=== PATIENT | female | born 1960 | race Asian ===

== ENCOUNTER 2025-02-03 10:30 | Emergency (ER) | payer OTHER ==
[2025-02-03 11:03] LABS: #Basophils 0.05 10x3/uL (0.0-0.2); #Eosinophils 0.12 10x3/uL (0.0-0.5); #Monocytes 0.35 10x3/uL (0.0-1.1); #Neutrophils 4.06 10x3/uL (1.5-8.4); %Basophils 0.8 % (0.0-2.0); %Eosinophils 1.9 % (0.0-6.0); %Lymphocytes 28.3 % (18.0-47.0); %Monocytes 5.4 % (0.0-10.0); %Neutrophils 62.8 % (40.0-75.0); Hematocrit 38.6 % (34.9-44.5); Hemoglobin 12.4 g/dL (12.0-15.5); Mean Corpuscular Hemoglobin 29.7 pg (27.0-33.0); Mean Corpuscular Volume 92.3 fL (81.6-98.3); Platelet Count 209 10x3/uL (150-450); Red Blood Cell (RBC) Count 4.18 10x6/uL (3.90-5.03); White Blood Cell (WBC) Count 6.46 10x3/uL (3.5-10.5)
[2025-02-03 11:28] LABS: ALT (SGPT) 16 U/L (Less than 34); AST (SGOT) 28 U/L (11-34); Albumin 4.1 g/dL (3.1-4.5); Alkaline Phosphatase 63 U/L (40-110); Anion Gap 13 mmol/L (10-20); BUN (Urea Nitrogen) 16 mg/dL (9.8-20.1); Bilirubin, Total 0.6 mg/dL (0.3-1.2); Calc. Creatinine Clearance 0 mL/min (70-130); Calcium 8.7 mg/dL (7.8-10.44); Carbon Dioxide 23 mmol/L (23-31); Chloride 106 mmol/L (98-107); Globulin 2.9 g/dL (2.4-3.5); Glucose 179 mg/dL (80-115); Lipase 33 U/L (8-78); Magnesium 2.1 mg/dL (1.6-2.6); Potassium 3.6 mmol/L (3.5-5.1); Sodium 138 mmol/L (136-145)
[2025-02-03 11:34] LABS: Troponin I Less than 0.010 ng/mL (< 0.028)
[2025-02-03] MEDS ORDERED: Iopamidol 370 76% 100 ML VIAL ONE (11:49)
== END 2025-02-03 16:05 | disposition home or self-care (01) ==
LOC: CSHERS 10:30
DX: R42 Dizziness and giddiness (principal); I10 Essential (primary) hypertension; Z55.6 Problems related to health literacy
CPT/HCPCS: 36416; 70496; 70498; 80053; 83690; 83735; 84484; 85025; 93005; Q9967